=== PATIENT | female | born 1965 | race Caucasian/White ===

== ENCOUNTER 2021-10-18 00:22 | Emergency (ER) | payer BC ==
[2021-10-18] MEDS ORDERED: diphenhydrAMINE 50 MG/ML SDV IVPUSH ONE (00:32)
[2021-10-18] MEDS ORDERED: Dexamethasone 4 MG/ML SDV IVPUSH ONE (00:32)
[2021-10-18] MEDS ORDERED: Sodium Chloride 0.9% 10 ML Syringe FLUSH PRN (00:33)
[2021-10-18] MEDS ORDERED: Sodium Chloride 0.9% 10 ML SDV IV ONE (00:34)
[2021-10-18] MEDS ORDERED: Famotidine 20 MG/2 ML SDV IVPUSH ONE (00:34)
[2021-10-18] MEDS ORDERED: Sodium Chloride 0.9% 10 ML ONE (00:57)
[2021-10-18 02:31] VITALS: BP 97/55; PULSE 80
== END 2021-10-18 02:35 | disposition home or self-care (01) ==
LOC: JP.ED 00:22
DX: T78.2XXA Anaphylactic shock, unspecified, initial encounter (principal); L50.9 Urticaria, unspecified; E78.00 Pure hypercholesterolemia, unspecified; I10 Essential (primary) hypertension; E66.9 Obesity, unspecified; Z68.31 Body mass index [BMI] 31.0-31.9, adult; Z79.899 Other long term (current) drug therapy
CPT/HCPCS: 36415; 80048; 85025; 96374; 96375; 99282; 99283-25; J1100; J1200; J3490